=== PATIENT | female | born 1975 | race Caucasian/White ===

== ENCOUNTER → 2019-03-06 | Outpatient (CLI) | payer OTHER ==
--- NOTE | 2019-03-06 14:42 | US ---
EXAMINATION TYPE: US abdomen limited DATE OF EXAM: 03/06/2019 COMPARISON: NONE CLINICAL HISTORY: r10.11 R upper quadrant pain. RUQ pain EXAM MEASUREMENTS: Liver Length: 14.7 cm Gallbladder Wall: .3 cm CBD: .2 cm Right Kidney: 9.1 x 3.3 x 3.8 cm Pancreas: wnl Liver: wnl Gallbladder: No stones seen Evidence for sonographic Reyes's sign: No CBD: wnl Right Kidney: wnl IMPRESSION: No sonographic evidence of cholelithiasis nor acute cholecystitis.
== END | disposition home or self-care (01) ==
LOC: RADUSWWP 13:39 → MERGE 13:40
PROVIDERS: ATTEND Surgery
DX: R10.11 Right upper quadrant pain (principal)
CPT/HCPCS: 76705

== ENCOUNTER 2019-03-07 12:04 | Day surgery (SDC) | payer OTHER ==
[2019-03-07 12:40] VITALS: TEMP 97.4
[2019-03-07] MEDS ORDERED: LIDOCAINE 1% 20 ML VIAL (10MG/ML) FOR IV START INTRADERMA ONE ×2 (12:44→12:50)
[2019-03-07] MEDS ORDERED: LACTATED RINGERS 1,000 ML IV ONE (12:49)
[2019-03-07] MEDS ORDERED: PROPOFOL 10 MG/ML 20 ML VIAL IV ONE (12:53)
[2019-03-07] MEDS ORDERED: GLYCOPYRROLATE 0.2 MG/ML 2 ML VIAL ONE (12:53)
[2019-03-07] MEDS ORDERED: LIDOCAINE 1% INJ 10MG/ML (20 ML MDV) ONE (12:53)
--- NOTE | 2019-03-07 13:00 | P.GSHP ---
History of Present Illness H&P Date: 03/07/19 Chief Complaint: Abdominal pain 43-year-old female has been experiencing right upper quadrant and epigastric abdominal pain recently. Some radiation to the back. Mild nausea. Some early satiety. No vomiting. No diarrhea or constipation at this time. No rectal bleeding or melena. Denies fevers. Medications and Allergies Home Medications Medication Instructions Recorded Confirmed Type No Known Home Medications 03/07/19 03/07/19 History Allergies Allergy/AdvReac Type Severity Reaction Status Date / Time No Known Allergies Allergy Verified 03/07/19 12:40 Surgical - Exam Physical exam: General: Well-developed, well-nourished HEENT: Normocephalic, sclerae nonicteric Abdomen: Nontender, nondistended Extremities: No edema Neuro: Alert and oriented Assessment and Plan (1) Epigastric abdominal pain Narrative/Plan: Will proceed with upper endoscopy Current Visit: Yes Status: Acute Code(s): R10.13 - EPIGASTRIC PAIN SNOMED Code(s): 17562143
--- NOTE | 2019-03-07 13:12 | P.PCN ---
Date of Procedure: 03/07/19 Procedure(s) Performed: Preoperative Dx: Epigastric abdominal pain Postoperative Dx: Mild duodenitis, minimal gastritis Procedure: EGD with Bx Anesthesia: Sedation Endoscopist: Dr. Obregon Specimens: Duodenum, antrum Endoscopic Procedure: The patient was on the endoscopy table in the left decubitus position. The Olympus gastroscope was inserted into the oropharynx and passed under direct visualization to the region of the third portion of the duodenum. From that point the scope was slowly withdrawn inspecting all surfaces carefully. There was evidence of mild duodenitis. Inflammatory changes of the mucosal folds in the first and second portion of the duodenum were seen. No ulcers were noted. Biopsies of the duodenum took place. The pylorus was widely patent. The stomach was carefully inspected. There was minimal gastritis seen. A biopsy of the antrum took place to rule out H. pylori. Retroflexion revealed a normal hiatus. The esophagus was then carefully examined. There were no neoplastic inflammatory or polypoid lesions throughout the visualized esophagus. The patient was then taken to the recovery room in stable condition per anesthesia guidelines. Recommendations: And Zantac at this time. Check routine labs. Patient states she was having bad headache related to Prilosec previously prescribed. If symptoms improve with antiacid therapy would recommend 3 month course and taper following that. If symptoms persist we'll consider HIDA scan.
[2019-03-07 13:18] VITALS: RESP 16
[2019-03-07 13:44] VITALS: BP 108/75; PULSE 67
[2019-03-07 14:25] LABS: Basophils % (A) 1 %; Eosinophils # (A) 0.1 k/uL (0-0.7); Eosinophils % (A) 3 %; HCT 38.2 % (34.0-46.0); HGB 12.8 gm/dL (11.4-16.0); Lymphocytes # (A) 1.1 k/uL (1.0-4.8); Lymphocytes % (A) 22 %; MCHC 33.5 g/dL (31.0-37.0); MCV 89.5 fL (80.0-100.0); Mean Platelet Volume 7.1; Monocytes # (A) 0.2 k/uL (0-1.0); Monocytes % (A) 4 %; Neutrophils # (A) 3.3 k/uL (1.3-7.7); Neutrophils % (A) 69 %; Platelet Count 206 k/uL (150-450); RBC 4.26 m/uL (3.80-5.40); RDW 12.6 % (11.5-15.5); WBC 4.8 k/uL (3.8-10.6)
[2019-03-07 14:35] LABS: ALT 20 U/L (9-52); AST 23 U/L (14-36); African American GFR (CKD) >90 (>60 ml/min/1.73 sqM); Albumin 3.8 g/dL (3.5-5.0); Alkaline Phosphatase 61 U/L (38-126); Amylase 34 U/L (30-110); Anion Gap 7 mmol/L; Blood Urea Nitrogen 10 mg/dL (7-17); Calcium 8.9 mg/dL (8.4-10.2); Carbon Dioxide 26 mmol/L (22-30); Chloride 106 mmol/L (98-107); Glucose 74 mg/dL (74-99); Potassium 4.6 mmol/L (3.5-5.1); Sodium 139 mmol/L (137-145); Total Bilirubin 0.6 mg/dL (0.2-1.3); Total Protein 6.1 g/dL (6.3-8.2)
== END 2019-03-07 14:25 | disposition home or self-care (01) ==
LOC: ORWHC2ENDO 12:04
PROVIDERS: ATTEND Surgery
DX: K29.80 Duodenitis without bleeding (principal); K29.50 Unspecified chronic gastritis without bleeding; K63.89 Other specified diseases of intestine; K21.9 Gastro-esophageal reflux disease without esophagitis; Z79.899 Other long term (current) drug therapy
CPT/HCPCS: 81025; 88305; 80053; 82150; 85025; 88342; 43239; J2001; J2704